=== PATIENT | male | born 1970 | race Caucasian/White ===

== ENCOUNTER → 2018-05-30 | Outpatient (CLI) | payer BC ==
--- NOTE | 2018-05-30 10:44 | KCIC ---
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 Findings: 2 views of the orbits are submitted. No metallic foreign body is identified in region of orbits. Impression: 1. No metallic foreign body is identified in the region of orbits. Electronically signed by: Omar Fatima MD (05/30/2018 10:39 AM) [email or web address]
--- NOTE | 2018-05-30 11:55 | KCIC ---
MRI Cervical Spine Without Contrast History: Cervicalgia, neck pain into the right arm in recent weeks, right upper extremity numbness Technique: Multiplanar, multi sequential noncontrast MR imaging was performed of the cervical spine. Comparison: None Findings: There is motion degradation. Cervical cord caliber is within normal limits without expansile signal abnormality, limited accurate evaluation for cord signal change due to motion. Cervical vertebral body stature and AP alignment are maintained. There is straightening of the cervical spine with mild reversal of the lordotic curvature more superiorly. There is moderate to severe degenerative disc disease C5-C6 and to a somewhat lesser degree at C4-5, minimally at C3-4, and mild disc desiccation C6-7. Trace right posterior C5-6 endplate edema is likely reactive/degenerative in etiology. Small cystic focus proximal right extraforaminal region at C6-7 is likely due to nerve root sleeve cyst, measuring about 0.5 cm. C2-C3: Neural foramina and spinal canal are adequate. C3-C4: There is minimal disc osteophyte complex more eccentric to the left lateral recess. Spinal canal and right neural foramen are adequate. Left uncovertebral and facet degenerative change contributes to moderate to severe narrowing of the left neural foramen. C4-C5: There is negligible disc osteophyte complex. Spinal canal is adequate. Right neural foramen is adequate. There is likely overall mild narrowing of the left neural foramen due to facet degenerative change, probable minimal uncovertebral degenerative change. C5-C6: There is minimal disc osteophyte complex and bulge. Spinal canal is adequate. There is uncovertebral degenerative change greater on the right. There is bilateral facet degenerative change. There is likely overall mild left and moderate to severe right neural foramina compromise. C6-C7: There is very minimal disc osteophyte complex and superimposed shallow broad protrusion with associated annular tear. Central canal is borderline about 10 mm. There is right uncovertebral degenerative change, at least mild narrowing of the right neural foramen, left neural foramen not significantly narrowed. C7-T1: Neural foramina and spinal canal are adequate. Impression: 1. There is no significant cervical spinal stenosis, borderline narrowing at C6-7. There is degenerative disc disease greatest at C5-6 and to a somewhat lesser degree at C4-5. There is mild spondylosis. Facet and uncovertebral degenerative change contributes to moderate to severe narrowing of the left C3-4 and right C5-6 neural foramina, other minimal narrowing as stated. Electronically signed by: Omar Fatima MD (05/30/2018 11:50 AM) [email or web address]
== END | disposition home or self-care (01) ==
LOC: KCIC MRI 10:02
PROVIDERS: ATTEND Physician Assistant
DX: M50.322 Other cervical disc degeneration at C5-C6 level (principal); M47.812 Spondylosis without myelopathy or radiculopathy, cervical region; M25.78 Osteophyte, vertebrae
CPT/HCPCS: 70030; 72141